=== PATIENT | male | born 1950 | race Two or more races ===

== ENCOUNTER 2020-12-23 08:03 | Emergency (ER) | payer OTHER ==
[~2020-12-23] VITALS: Ht 182.9 cm; Wt 74.8 kg
[2020-12-23 08:28] VITALS: BP 135/78
[2020-12-23] MEDS ORDERED: KETOROLAC TROMETHAMINE INJ 30 MG/ML VIAL IM ONE (08:30)
--- NOTE | 2020-12-23 08:31 | NUR ---
SEEN AND EXAMINED BY .
[2020-12-23] MEDS ORDERED: KETOROLAC TROMETHAMINE INJ 30 MG/ML VIAL ONE (08:42)
--- NOTE | 2020-12-23 08:44 | NUR ---
PT IS BACK FROM THE CT SCAN.
[2020-12-23] MEDS ORDERED: CALC3.7S NS (09:46)
[2020-12-23] MEDS ORDERED: HYDR-3980 PO (09:46)
--- NOTE | 2020-12-23 10:08 | NUR ---
Patient discharged to home in stable condition. Written and verbal after care instructions given. Patient verbalizes understanding of instruction.
[2020-12-24] MEDS ORDERED: HYDROMORPHONE INJ 2 MG/ML DISP.SYRIN ONE (01:25)
[2020-12-24] MEDS ORDERED: KETOROLAC TROMETHAMINE INJ 30 MG/ML VIAL ONE (01:26)
== END 2020-12-23 10:09 | disposition home or self-care (01) ==
LOC: ER 08:09
DX: S32.028A Other fracture of second lumbar vertebra, initial encounter for closed fracture (principal); J45.909 Unspecified asthma, uncomplicated; Z88.0 Allergy status to penicillin; Z79.899 Other long term (current) drug therapy; X58.XXXA Exposure to other specified factors, initial encounter; Y93.89 Activity, other specified; Y92.89 Other specified places as the place of occurrence of the external cause; Y99.8 Other external cause status
CPT/HCPCS: 72131; 96372; 99284; J1885; J1170

== ENCOUNTER 2020-12-23 22:07 | Emergency (ER) | payer OTHER ==
[~2020-12-23] VITALS: Ht 182.9 cm; Wt 74.8 kg
[~2020-12-23 22:07] MED LIST: CALC3.7S NS; HYDR-3980 PO
--- NOTE | 2020-12-23 22:35 | NUR ---
[facility] C/O LEFT LOWER BACK PAIN, WAS SEEN HERE EARLIER TODAY. PATIENT STATES LOWER BACK PAIN UNRELIEVED BY NORCO THAT WAS PRESCRIBED. PT ALERT AND ORIENTED X3. AMBULATORY WITH NON LABORED BREATHING.
[2020-12-23] MEDS ORDERED: HYDROMORPHONE 1 MG/1 ML DISP.SYRIN IM ONE (23:00)
[2020-12-23] MEDS ORDERED: KETOROLAC TROMETHAMINE INJ 30 MG/ML VIAL IM ONE (23:00)
[2020-12-23] MEDS ORDERED: HYDROMORPHONE 1 MG/1 ML DISP.SYRIN ONE (23:10)
[2020-12-23] MEDS ORDERED: KETOROLAC TROMETHAMINE INJ 30 MG/ML VIAL ONE (23:10)
[2020-12-24] MEDS ORDERED: KETOROLAC TROMETHAMINE INJ 30 MG/ML VIAL IM ONE (01:00)
[2020-12-24] MEDS ORDERED: HYDROMORPHONE INJ 2 MG/ML DISP.SYRIN IM ONE (01:00)
[2020-12-24 01:44] VITALS: BP 130/77
--- NOTE | 2020-12-24 01:44 | NUR ---
Patient discharged to home in stable condition. Written and verbal after care instructions given. Patient verbalizes understanding of instruction.
[2021-01-04] MEDS ORDERED: HYDR-3980 PO (10:03)
[2021-01-04] MEDS ORDERED: VANC1VIA34 IV (10:13)
[2021-01-04] MEDS ORDERED: CEFT2FRO2 IV (10:13)
[2021-01-05] MEDS ORDERED: DOCU-141 PO (09:28)
== END 2020-12-24 01:45 | disposition home or self-care (01) ==
LOC: ER 22:09
DX: S32.009A Unspecified fracture of unspecified lumbar vertebra, initial encounter for closed fracture (principal); J45.909 Unspecified asthma, uncomplicated; Z60.2 Problems related to living alone; Z88.0 Allergy status to penicillin; Z79.899 Other long term (current) drug therapy; X58.XXXA Exposure to other specified factors, initial encounter; Y93.89 Activity, other specified; Y92.89 Other specified places as the place of occurrence of the external cause; Y99.8 Other external cause status
CPT/HCPCS: 96372 ×4; 99284; J1170 ×2; J1885 ×2

== ENCOUNTER 2020-12-26 04:34 | Emergency (ER) | payer OTHER ==
[~2020-12-26] VITALS: Ht 182.9 cm; Wt 74.8 kg
[2020-12-26 04:34] VITALS: BP 141/81
[2020-12-26] MEDS ORDERED: MORPHINE SULFATE INJ 2 MG/ML DISP.SYRIN IM ONE (05:00)
[2020-12-26] MEDS ORDERED: ONDANSETRON 4 MG TAB.RAPDIS PO ONE (05:00)
--- NOTE | 2020-12-26 05:00 | NUR ---
Patient discharged to home in stable condition. Written and verbal after care instructions given. Patient verbalizes understanding of instruction. pt ambulatory with a steady gait
[2020-12-26] MEDS ORDERED: MORPHINE SULFATE INJ 4 MG/ML DISP.SYRIN ONE (05:01)
[2020-12-26] MEDS ORDERED: ONDANSETRON 4 MG TAB.RAPDIS ONE (05:02)
[2021-01-04] MEDS ORDERED: HYDR-3980 PO (10:03)
[2021-01-04] MEDS ORDERED: CEFT2FRO2 IV (10:13)
[2021-01-04] MEDS ORDERED: VANC1VIA34 IV (10:13)
[2021-01-05] MEDS ORDERED: DOCU-141 PO (09:28)
== END 2020-12-26 05:00 | disposition home or self-care (01) ==
LOC: ER 04:36
DX: S32.008A Other fracture of unspecified lumbar vertebra, initial encounter for closed fracture (principal); M54.50 Low back pain, unspecified; J45.909 Unspecified asthma, uncomplicated; Z88.0 Allergy status to penicillin; Z60.2 Problems related to living alone; Z79.899 Other long term (current) drug therapy; X58.XXXA Exposure to other specified factors, initial encounter; Y93.89 Activity, other specified; Y92.89 Other specified places as the place of occurrence of the external cause; Y99.8 Other external cause status
CPT/HCPCS: 96372; 99283; J2270; Q0162

== ENCOUNTER 2020-12-27 17:22 | Emergency (ER) | payer OTHER ==
[~2020-12-27] VITALS: Ht 182.9 cm; Wt 74.8 kg
[2020-12-27 22:50] VITALS: BP 139/66
[2020-12-27] MEDS ORDERED: MORPHINE SULFATE INJ 4 MG/ML DISP.SYRIN ONE (22:59)
[2020-12-27] MEDS ORDERED: MORPHINE SULFATE INJ 2 MG/ML DISP.SYRIN IM ONE (23:00)
[2021-01-04] MEDS ORDERED: HYDR-3980 PO (10:03)
[2021-01-04] MEDS ORDERED: CEFT2FRO2 IV (10:13)
[2021-01-04] MEDS ORDERED: VANC1VIA34 IV (10:13)
[2021-01-05] MEDS ORDERED: DOCU-141 PO (09:28)
== END 2020-12-27 23:39 | disposition home or self-care (01) ==
LOC: ER 17:33
DX: S32.008A Other fracture of unspecified lumbar vertebra, initial encounter for closed fracture (principal); J45.909 Unspecified asthma, uncomplicated; Z88.0 Allergy status to penicillin; Z60.2 Problems related to living alone; X58.XXXA Exposure to other specified factors, initial encounter; Y93.89 Activity, other specified; Y92.89 Other specified places as the place of occurrence of the external cause; Y99.8 Other external cause status
CPT/HCPCS: 96372; 99283; J2270

== ENCOUNTER 2020-12-31 14:04 | Inpatient (IN) | payer OTHER ==
[~2020-12-31] VITALS: Ht 182.9 cm; Wt 73.9 kg
--- NOTE | 2020-12-31 14:12 | NUR ---
BIB [facility] FROM [facility] C/O WORSENING LOWER BACK PAIN X 2 WEEKS. PAIN IS RATED 10/10, RADIATES TO L LEG. PAIN IS WORSE W MOVEMENT. DENIES TRAUMA. HX L2 FRACTURE, ASTHMA. AAOX4, PT SITTING ON BED, BREATHING EVEN AND UNLABORED.
[2020-12-31] MEDS ORDERED: MORPHINE SULFATE INJ 2 MG/ML DISP.SYRIN IV ONE ×2 (15:00→16:30)
[2020-12-31] MEDS ORDERED: IV NS 0.9% 500 ML BAG IV ONE ×2 (15:00→19:00)
[2020-12-31] MEDS ORDERED: ONDANSETRON HCL/PF 4 MG/2 ML VIAL IVP ONE (15:00)
[2020-12-31] MEDS ORDERED: ZINC50TA69 PO (15:17)
[2020-12-31] MEDS ORDERED: LORA10TA7 PO (15:17)
[2020-12-31] MEDS ORDERED: TIOT4MIS5 INH (15:17)
[2020-12-31] MEDS ORDERED: TRAM50TA2 PO (15:17)
[2020-12-31] MEDS ORDERED: CHOL100062 PO (15:17)
[2020-12-31] MEDS ORDERED: MAGN400T26 PO (15:17)
[2020-12-31] MEDS ORDERED: ALBU8.5H8 IH (15:17)
[2020-12-31] MEDS ORDERED: HYDR-3980 PO (15:17)
[2020-12-31] MEDS ORDERED: PANT40TA49 PO (15:17)
[2020-12-31] MEDS ORDERED: MULT-447 PO (15:17)
[2020-12-31] MEDS ORDERED: MORPHINE SULFATE INJ 4 MG/ML DISP.SYRIN ONE ×2 (15:23→17:30)
[2020-12-31] MEDS ORDERED: ONDANSETRON HCL/PF 4 MG/2 ML VIAL IVP PRN (15:30)
[2020-12-31] MEDS ORDERED: MAGNESIUM HYDROXIDE 30 ML UDC PO PRN (15:30)
[2020-12-31] MEDS ORDERED: ACETAMINOPHEN 325 MG TABLET PO PRN (15:30)
[2020-12-31] MEDS ORDERED: MAG HYDROX/AL HYDROX/SIMETH 30 ML UDC PO PRN (15:30)
[2020-12-31] MEDS ORDERED: HYDROCODONE/APAP 5/325MG TABLET PO PRN (15:30)
[2020-12-31] MEDS ORDERED: Z GUARD REMEDY 2 OZ OINT TP PRN (15:30)
--- NOTE | 2020-12-31 15:40 | NUR ---
BLOOD SAMPLE OBTAINED AND SENT TO LAB
[2020-12-31 15:57] LABS: BASOPHILS % (AUTO) 0.4 % (0.0-2.0); EOSINOPHILS % (AUTO) 1.7 % (0.0-6.0); HEMATOCRIT 46 % (39-51); HEMOGLOBIN 15.2 g/dL (13.5-17.5); LYMPHOCYTES # (AUTO) 0.8 K/uL (0.8-4.8); LYMPHOCYTES % (AUTO) 8.8 % (20.0-44.0); MEAN CORPUSCULAR HGB CONC 33 g/dl (31.0-36.0); MEAN CORPUSCULAR VOLUME 92 fL (80-96); MONOCYTES # (AUTO) 0.7 K/uL (0.1-1.30); MONOCYTES % (AUTO) 7.6 % (2.0-12.0); NEUTROPHILS # (AUTO) 7.9 K/uL (1.8-8.9); NEUTROPHILS % (AUTO) 81.5 % (43.0-81.0); PLATELET COUNT (AUTO) 322 K/uL (150-450); RED BLOOD CELL COUNT(AUTO) 5.02 MIL/uL (4.5-6.0); WHITE BLOOD COUNT (AUTO) 9.7 K/uL (4.3-11.0)
[2020-12-31 16:11] LABS: CALCIUM, SERUM 9.2 mg/dL (8.5-10.1); POTASSIUM 3.4 mmol/L (3.5-5.1)
--- NOTE | 2020-12-31 16:27 | NUR ---
wheeled patient via wheelchair to MRI
[2020-12-31] MEDS ORDERED: ONDANSETRON HCL/PF 4 MG/2 ML VIAL IV ONE (16:30)
--- NOTE | 2020-12-31 17:56 | NUR ---
PT RETURNED FROM MRI
[2020-12-31] MEDS ORDERED: GADOTERATE MEGLUMINE 10 MMOL/20 ML VIAL IV ONE (18:00)
[2020-12-31] MEDS ORDERED: VANCOMYCIN 1 GM in IV D5W 250 ML IV ONE (19:00)
[2020-12-31] MEDS ORDERED: HYDROMORPHONE 1 MG/1 ML DISP.SYRIN IV ONE ×2 (19:00→20:00)
[2020-12-31] MEDS ORDERED: CEFTRIAXONE 2 G in IV D5W 50 ML IV ONE (19:00)
--- NOTE | 2020-12-31 19:34 | NUR ---
MRSA SWAB COLLECTED AND SENT TO LAB. PATIENT'S BELONGINGS LIST DONE.
[2020-12-31] MEDS ORDERED: HYDROMORPHONE 1 MG/1 ML DISP.SYRIN ONE (19:56)
--- NOTE | 2020-12-31 21:15 | NUR ---
MS 311-2
--- NOTE | 2020-12-31 21:38 | NUR ---
REPORT GIVEN TO BRITTANI
--- NOTE | 2020-12-31 21:45 | NUR ---
PT TRANFERRING TO 3W 311-2 VIA ACLS PROTOCOL. ALL BELONGINGS WITH PT.
[2020-12-31 21:50] VITALS: BP 147/87
--- NOTE | 2020-12-31 22:00 | NUR ---
RN MS ADMITTING NOTES ADMITTED A 70 Y/O MALE TO UNIT AT 2145 VIA GURNEY BY El NURSE RN. PT IS A/O X 4. ABLE TO MAKE NEDS KNOWN, NO C/O PAIN AND DISCOMFORT AT THIS TIME. PT. ON ROOM AIR, TOLERATING WELL WITH NO SOB NOTED. IV ACCESS NOTED AT RAC G#20 INTACT AND PATENT. ABDOMEN SOF AND NOM DISTENDED. PT. ORIENTED TO STAFF AND TO HIS ROOM. SAFETY MEASURES INITIATED, BED PLACED IN LOWEST LOCKED POSITION WITH SR- UP X 2. WILL CONTINUE TO MONITOR PATIENT ACCDGLY.
[2021-01-01] MEDS ORDERED: ZOSYN IVPB 3.375 G in IV D5W 50ml IV SCH (00:19)
[2021-01-01] MEDS: MORPHINE SULFATE INJ 2 MG/ML DISP.SYRIN IV PRN ×5 (00:29→20:14)
[2021-01-01] MEDS ORDERED: VANCOMYCIN 1.25 GM in IV D5W 250 ML IV ONE ×2 (00:30→02:30)
--- NOTE | 2021-01-01 00:30 | NUR ---
RN NOTES PATIENT C/O LOWER BACK PAIN, PRN MORPHINE SO4 IV GIVEN. WILL CONTINUE TO MONITOR PT.
[2021-01-01] MEDS ORDERED: PIPERACILLIN /TAZOBACTAM 3.375 G VIAL IV ONE (00:49)
[2021-01-01] MEDS: ENOXAPARIN SODIUM 40 MG/0.4 ML DISP.SYRIN SQ SCH ×2 (01:27→20:09)
[2021-01-01] MEDS: LIDOCAINE 5% (PATCH) 1 EA PATCH TP SCH ×2 (01:27→20:08)
[2021-01-01] MEDS ORDERED: POTASSIUM CHLORIDE 20 MEQ TAB.PRT.SR PO ONE (01:30)
--- NOTE | 2021-01-01 01:35 | NUR ---
RN NOTES SPOKE WITH PHARMACIST RINA REGARDING PT MEDS FOR ZOSYN AND VANCOMYCIN. RINA STATED WILL ADJUST THE TIME SO WE CAN ADMINISTER THE MEDS.
[2021-01-01] MEDS: ZOSYN IVPB 3.375 G in IV D5W 50ml IV SCH ×2 (01:58→08:00)
--- NOTE | 2021-01-01 03:15 | NUR ---
RN NOTES VANCOMYCIN IV DOSE RECEIVED FROM BOILER/CHILLER TECHNICIAN VALERIA
[2021-01-01] MEDS ORDERED: VANCOMYCIN 500 MG VIAL ONE (03:23)
[2021-01-01] MEDS ORDERED: VANCOMYCIN 1 GM VIAL ONE (03:32)
--- NOTE | 2021-01-01 04:40 | NUR ---
RN NOTES PATIENT C/O LOWER BACK PAIN, PRN MORPHINE SO4 IV GIVEN. WILL CONTINUE TO MONITOR PT
--- NOTE | 2021-01-01 06:43 | NUR ---
RN MS CLOSING NOTES PT IS A/O X 4. ABLE TO MAKE NEDS KNOWN, NO C/O PAIN AND DISCOMFORT AT THIS TIME. PT. ON ROOM AIR, TOLERATING WELL WITH NO SOB NOTED. IV ACCESS NOTED AT RAC G#20 INTACT AND PATENT. ABDOMEN SOFT AND NOM DISTENDED. PT. ORIENTED TO STAFF AND TO HIS ROOM. SAFETY MEASURES INITIATED, BED PLACED IN LOWEST LOCKED POSITION WITH SR- UP X 2. WILL ENDORSED PT. TO DAY TIME NURSE FOR SALUD
[2021-01-01 06:44] LABS: BASOPHILS % (AUTO) 0.2 % (0.0-2.0); HEMATOCRIT 40 % (39-51); HEMOGLOBIN 13.3 g/dL (13.5-17.5); LYMPHOCYTES % (AUTO) 14.6 % (20.0-44.0); MEAN CORPUSCULAR HGB CONC 33 g/dl (31.0-36.0); MEAN CORPUSCULAR VOLUME 93 fL (80-96); MONOCYTES # (AUTO) 0.8 K/uL (0.1-1.30); MONOCYTES % (AUTO) 12.3 % (2.0-12.0); NEUTROPHILS # (AUTO) 4.6 K/uL (1.8-8.9); NEUTROPHILS % (AUTO) 68.9 % (43.0-81.0); PLATELET COUNT (AUTO) 270 K/uL (150-450); RED BLOOD CELL COUNT(AUTO) 4.33 MIL/uL (4.5-6.0); WHITE BLOOD COUNT (AUTO) 6.7 K/uL (4.3-11.0)
[2021-01-01 07:12] LABS: CALCIUM, SERUM 8.5 mg/dL (8.5-10.1); CREATININE 1.1 mg/dL (0.6-1.3); MAGNESIUM 2.1 mg/dL (1.8-2.4)
--- NOTE | 2021-01-01 07:15 | NUR ---
MS RN NOTE RECEIVED PATIENT ALERT/ ORIENTED X 4. PATIENT IS ON ROOM AIR WITH EQUAL AND UNLABORED BREATHING WITH NO SIGNS OF RESPIRATORY DISTRESS. PATIENT DOS NOT COMPLAIN OF PAIN OR DISCOMFORT FOR NOW. BUT SAID IT IS USUALLY TRIGGERED WHEN HE HAS TO SIT DOWN, WALK OR SOMETIMES CHANGE POSITION. PATIENT WITH IV ACCESS ON RIGHT AC G 20 ON SALINE LOCK, PATENT AND INTACT. SAFETY MEASURES ENSURED WITH BED LOCKED AND AT LOWEST POSITION, WITH SIDERAILS UP. CALL LIGHT AND TABLE WITHIN REACH AT ALL TIMES. WILL CONTINUE TO MONITOR PATIENT.
[2021-01-01 07:24] LABS: THYROID STIMULATING HORMONE 1.813 uIU/mL (0.358-3.74)
[2021-01-01 08:00] VITALS: BP 142/89
[2021-01-01] MEDS: PANTOPRAZOLE 40 MG TABLET.DR PO SCH (08:44)
[2021-01-01] MEDS ORDERED: LORATADINE 10 MG TABLET PO PRN (09:30)
[2021-01-01] MEDS: TRAMADOL HCL 50 MG TABLET PO PRN (09:50)
[2021-01-01] MEDS ORDERED: ALBUTEROL FS 2.5 MG/3 ML VIAL.NEB NEB PRN (10:00)
[2021-01-01] MEDS: HYDROCODONE/APAP 10/325MG TABLET PO PRN ×3 (10:46→23:33)
[2021-01-01] MEDS: VANCOMYCIN 1 GM in IV D5W 250 ML IV SCH (15:44)
[2021-01-01 16:00] VITALS: BP 146/90
[2021-01-01] MEDS: PIPERACILLIN /TAZOBACTAM 3.375 G in IV D5W 100 ML IV SCH ×2 (17:02→23:29)
--- NOTE | 2021-01-01 19:10 | NUR ---
MS RN CLOSING NOTE PATIENT ALERT/ ORIENTED X 4. PATIENT IS ON ROOM AIR WITH EQUAL AND UNLABORED BREATHING WITH NO SIGNS OF RESPIRATORY DISTRESS. PATIENT DOS NOT COMPLAIN OF PAIN OR DISCOMFORT FOR NOW. BUT SAID IT IS USUALLY TRIGGERED WHEN HE HAS TO SIT DOWN, WALK OR SOMETIMES CHANGE POSITION. PATIENT WITH IV ACCESS ON RIGHT AC G 20 ON SALINE LOCK, PATENT AND INTACT. SAFETY MEASURES ENSURED WITH BED LOCKED AND AT LOWEST POSITION, WITH SIDERAILS UP. CALL LIGHT AND TABLE WITHIN REACH AT ALL TIMES. WILL ENDORSE PATIETN FOR CONTINUITY OF CARE.
--- NOTE | 2021-01-01 19:37 | NUR ---
RN OPENING NOTES Patient is A&Ox4 in bed. In no apparent distress. Denies pain or any other needs at this time. Safety measures in place. Will continue nto monitor pt.
[2021-01-01] MEDS: IPRATROPIUM NEB FS 0.5 MG/2.5 ML AMPUL.NEB NEB SCH (19:54)
[2021-01-01 20:00] VITALS: BP 147/91
[2021-01-02] MEDS: MORPHINE SULFATE INJ 2 MG/ML DISP.SYRIN IV PRN ×2 (00:39→04:39)
[2021-01-02] MEDS: ZOLPIDEM TARTRATE 5 MG TABLET PO PRN ×2 (00:45→23:57)
[2021-01-02] MEDS: VANCOMYCIN 1 GM in IV D5W 250 ML IV SCH ×2 (04:04→15:39)
--- NOTE | 2021-01-02 06:17 | NUR ---
RN CLOSING NOTES Patient is currently sleeping but easy to wake, breathing is even and unlabored. Tolerating IV ABX well, no ase. Patient did complain of sudden onset severe lower back pain radiating down to L leg, sometimes only lasting for 15-30 minutes (short durations) but pain is responsive to PRN pain medications. Patient needs help with repositioning out of bed d/t twisting of spine can onset an episode of immediate sharp severe pain. No cardiac or resp. distress. No change in mental status -A&Ox4.
[2021-01-02] MEDS: HYDROCODONE/APAP 10/325MG TABLET PO PRN ×3 (06:42→22:18)
[2021-01-02] MEDS: PANTOPRAZOLE 40 MG TABLET.DR PO SCH (06:42)
[2021-01-02 07:29] LABS: BASOPHILS % (AUTO) 0.5 % (0.0-2.0); EOSINOPHILS % (AUTO) 3.3 % (0.0-6.0); HEMATOCRIT 41 % (39-51); HEMOGLOBIN 13.6 g/dL (13.5-17.5); LYMPHOCYTES # (AUTO) 1.2 K/uL (0.8-4.8); LYMPHOCYTES % (AUTO) 18.8 % (20.0-44.0); MEAN CORPUSCULAR HGB CONC 33 g/dl (31.0-36.0); MEAN CORPUSCULAR VOLUME 92 fL (80-96); MONOCYTES # (AUTO) 0.8 K/uL (0.1-1.30); MONOCYTES % (AUTO) 11.6 % (2.0-12.0); NEUTROPHILS # (AUTO) 4.3 K/uL (1.8-8.9); NEUTROPHILS % (AUTO) 65.8 % (43.0-81.0); PLATELET COUNT (AUTO) 282 K/uL (150-450); RED BLOOD CELL COUNT(AUTO) 4.43 MIL/uL (4.5-6.0); WHITE BLOOD COUNT (AUTO) 6.5 K/uL (4.3-11.0)
[2021-01-02] MEDS ORDERED: PANTOPRAZOLE 40 MG TABLET.DR PO SCH (07:30)
--- NOTE | 2021-01-02 07:30 | NUR ---
MS RN OPENING NOTE RECEIVED PATIENT AWAKE IN BED. A/O X 4. PT IS STABLE ON ROOM AIR. NO SOB OR S/S OF RESPIRATORY DISTRESS. IV ACCESS ON RIGHT AC G 20 ON SALINE LOCK, PATENT AND INTACT. SAFETY MEASURES MAINTAINED. BED LOCKED AND AT LOWEST POSITION, SIDE RAILS UP X2, CALL LIGHT AND TABLE WITHIN REACH AT ALL TIMES. WILL CONTINUE WITH PLAN OF CARE.
[2021-01-02 08:00] VITALS: BP 146/97
[2021-01-02 08:03] LABS: CALCIUM, SERUM 8.7 mg/dL (8.5-10.1); CREATININE 1.1 mg/dL (0.6-1.3); POTASSIUM 3.8 mmol/L (3.5-5.1)
[2021-01-02] MEDS ORDERED: Medication Not On Formulary EA (Tiotropium Bromide (Spiriva Respimat) 2 PUFF) INH SCH (09:00)
[2021-01-02] MEDS: PIPERACILLIN /TAZOBACTAM 3.375 G in IV D5W 100 ML IV SCH ×2 (09:05→16:50)
[2021-01-02] MEDS: ZINC SULFATE 220 MG CAPSULE PO SCH (09:05)
[2021-01-02] MEDS: MULTIVIT W/MINERALS 1 TAB TABLET PO SCH (09:05)
[2021-01-02] MEDS: CHOLECALCIFEROL 1,000 UNIT TABLET (VIT D3) PO SCH (09:05)
[2021-01-02] MEDS: MAGNESIUM OXIDE 400 MG TABLET PO SCH (09:06)
[2021-01-02] MEDS: DOCUSATE SODIUM 250 MG CAPSULE PO SCH (09:30)
[2021-01-02] MEDS ORDERED: MAGNESIUM HYDROXIDE 30 ML UDC PO PRN (09:30)
[2021-01-02] MEDS ORDERED: LACTULOSE 10 G/15 ML UDC (PYXIS) PO PRN (09:30)
[2021-01-02] MEDS: HYDROMORPHONE 1 MG/1 ML DISP.SYRIN IV PRN ×3 (09:38→21:15)
[2021-01-02 16:00] VITALS: BP 158/104
[2021-01-02] MEDS: TRAMADOL HCL 50 MG TABLET PO PRN ×2 (16:47→23:57)
--- NOTE | 2021-01-02 18:25 | NUR ---
MS RN OPENING NOTE PATIENT AWAKE IN BED. A/O X 4. PT IS STABLE ON ROOM AIR. NO SOB OR S/S OF RESPIRATORY DISTRESS. IV ACCESS ON RIGHT AC G 20 ON SALINE LOCK, PATENT AND INTACT. ALL NEEDS MET AT THIS TIME. SAFETY MEASURES MAINTAINED AT ALL TIMES. BED LOCKED AND AT LOWEST POSITION, SIDE RAILS UP X2, CALL LIGHT AND TABLE WITHIN REACH AT ALL TIMES. WILL ENDORSE TO ONCOMING NURSE FOR SALUD.
[2021-01-02] MEDS: IPRATROPIUM NEB FS 0.5 MG/2.5 ML AMPUL.NEB NEB SCH (19:30)
--- NOTE | 2021-01-02 19:40 | NUR ---
Patient is A&Ox4. Resting in bed. denies pain at this time. No ase from IV ABX at this time. Tolerating treatment well. Pain was severe but able to be managed this morning with PRN pain meds pt. stated. Will continue to monitor.
[2021-01-02 20:00] VITALS: BP 140/93
--- NOTE | 2021-01-02 20:09 | NUR ---
RT NOTE PT REFUSED TX AT THIS TIME. NO RESPIRATORY DISTRESS NOTED. PT ON ROOM AIR. AMBROSIO JULIAN NOTIFIED.
[2021-01-02] MEDS: LIDOCAINE 5% (PATCH) 1 EA PATCH TP SCH (20:21)
[2021-01-02] MEDS: ENOXAPARIN SODIUM 40 MG/0.4 ML DISP.SYRIN SQ SCH (20:23)
[2021-01-02] MEDS: CEFTRIAXONE 2 G in IV D5W 100 ML IV SCH (21:15)
[2021-01-03] MEDS: HYDROMORPHONE 1 MG/1 ML DISP.SYRIN IV PRN ×5 (01:15→22:26)
[2021-01-03] MEDS: IPRATROPIUM NEB FS 0.5 MG/2.5 ML AMPUL.NEB NEB SCH ×4 (01:30→19:30)
[2021-01-03] MEDS: VANCOMYCIN 1 GM in IV D5W 250 ML IV SCH ×2 (04:24→15:26)
--- NOTE | 2021-01-03 06:44 | NUR ---
CLOSING NOTES Patient now awake A&Ox4, patient finally able to sleep once pain was well managed with PRN pain medications. However, patient did have some episodes of severe pain prior. No ase from ABX.
--- NOTE | 2021-01-03 07:19 | NUR ---
MS RN OPENING NOTE RECEIVED PATIENT AWAKE IN BED. A/O X 4. PT IS BREATHING EVENLY AND NONLABORED STABLE ON ROOM AIR. NO SOB OR S/S OF RESPIRATORY DISTRESS. IV ACCESS ON RIGHT AC G 20 ON SALINE LOCK, PATENT AND INTACT. SAFETY MEASURES MAINTAINED. BED LOCKED AND AT LOWEST POSITION, SIDE RAILS UP X2, CALL LIGHT AND TABLE WITHIN REACH AT ALL TIMES. WILL CONTINUE TO MONITOR
[2021-01-03 08:00] VITALS: BP 138/87
[2021-01-03] MEDS: CHOLECALCIFEROL 1,000 UNIT TABLET (VIT D3) PO SCH (08:17)
[2021-01-03] MEDS: ZINC SULFATE 220 MG CAPSULE PO SCH (08:17)
[2021-01-03] MEDS: PANTOPRAZOLE 40 MG TABLET.DR PO SCH (08:17)
[2021-01-03] MEDS: HYDROCODONE/APAP 10/325MG TABLET PO PRN ×3 (08:17→17:47)
[2021-01-03] MEDS: MAGNESIUM OXIDE 400 MG TABLET PO SCH (08:17)
[2021-01-03] MEDS: DOCUSATE SODIUM 250 MG CAPSULE PO SCH (08:17)
[2021-01-03] MEDS: MULTIVIT W/MINERALS 1 TAB TABLET PO SCH (08:17)
[2021-01-03] MEDS: ENSURE ENLIVE 237 ML LIQUID (VANILLA) PO SCH ×3 (10:00→16:01)
--- NOTE | 2021-01-03 15:30 | NUR ---
RN NOTE PATIENT NOTED TO HAVE DISLODGED IV ACCESS, REINSERTED NEW IV ON R FOREARM # 22 GAUGE, PATENT INTACT.
[2021-01-03 16:00] VITALS: BP 144/96
--- NOTE | 2021-01-03 18:35 | NUR ---
MS RN CLOSING NOTE PATIENT AWAKE IN BED. A/O X 4. PT IS BREATHING EVENLY AND NONLABORED STABLE ON ROOM AIR. NO SOB OR S/S OF RESPIRATORY DISTRESS. IV ACCESS ON RIGHT FOREARM 22# ON SALINE LOCK, PATENT AND INTACT. DENIES PAIN OR DISCOMFIRT AT THIS TIME. ALL MEDICATIONS GIVEN ORDERED. SAFETY MEASURES MAINTAINED. BED LOCKED AND AT LOWEST POSITION, SIDE RAILS UP X2, CALL LIGHT AND TABLE WITHIN REACH AT ALL TIMES. WILL ENDORSE TO ONCOMING SHIFT
[2021-01-03 20:00] VITALS: BP 116/85
[2021-01-03] MEDS: LIDOCAINE 5% (PATCH) 1 EA PATCH TP SCH (20:27)
--- NOTE | 2021-01-03 20:45 | NUR ---
MS RN OPENING NOTES: RECEIVED PATIENT AWAKE IN BED, HOB AT 45 DEGREE, NO COMPLAIN OF PAIN AND DISCOMFORT AT THIS TIME. PATIENT IS A/O X4 ABLE TO EXPRESS NEEDS, IV LINE AT RFA#22 SL PATIENT IS ON PAIN MANAGEMENT, NO FACIAL GRIMACING OR ANY COMPLAIN OF DISCOMFORT ON RA NO SOB WAS OBSERVED, PATIENT KEPT CLEAN AND DRY, ALL NEEDS MET, WILL CONTINUE TO MONITOR.
[2021-01-03] MEDS: ENOXAPARIN SODIUM 40 MG/0.4 ML DISP.SYRIN SQ SCH (20:55)
[2021-01-03] MEDS: CEFTRIAXONE 2 G in IV D5W 100 ML IV SCH (20:56)
[2021-01-03] MEDS: ZOLPIDEM TARTRATE 5 MG TABLET PO PRN (23:25)
[2021-01-04] MEDS: IPRATROPIUM NEB FS 0.5 MG/2.5 ML AMPUL.NEB NEB SCH ×4 (01:30→19:30)
[2021-01-04] MEDS: HYDROCODONE/APAP 10/325MG TABLET PO PRN ×4 (02:38→22:56)
[2021-01-04] MEDS: VANCOMYCIN 1 GM in IV D5W 250 ML IV SCH ×2 (04:12→15:59)
[2021-01-04] MEDS: HYDROMORPHONE 1 MG/1 ML DISP.SYRIN IV PRN ×3 (06:16→18:48)
--- NOTE | 2021-01-04 06:59 | NUR ---
MS RN CLOSING NOTE PATIENT SLEEP IN BED COMFORTABLY, BED IN LOW POSITION, CALL LIGHTS WITHIN REACH, NO COMPLAIN OF PAIN AND DISCOMFORT AT THIS TIME, PATIENT IS A/OX4 AMBULATORY, ON PAIN MANAGEMENT, IV LINE AT RFA#22SL, PATIENT KEPT CLEAN AND DRY, ALL NEEDS MET, ENDORSE TO INCOMING SHIFT.
--- NOTE | 2021-01-04 07:30 | NUR ---
RN MS NOTES PT IN BED, ASLEEP, EASY TO AROUSE, ALERT AND ORIENTED, NO COMPLAINT AT THIS TIME, BREATHING PATTERN NORMAL, CALL LIGHT WITHIN REACH.
[2021-01-04 07:42] LABS: CALCIUM, SERUM 8.3 mg/dL (8.5-10.1); CREATININE 1.3 mg/dL (0.6-1.3); POTASSIUM 3.5 mmol/L (3.5-5.1)
--- NOTE | 2021-01-04 07:52 | NUR ---
RT NOTE PATIENT AWAKE/ALERT AND REFUSED TX. STATES NOT NEEDING THE TX AT THIS TIME. RN NOTIFIED. NO SOB NOTED.
[2021-01-04 09:00] VITALS: BP 139/85
[2021-01-04] MEDS: ZINC SULFATE 220 MG CAPSULE PO SCH (09:10)
[2021-01-04] MEDS: MULTIVIT W/MINERALS 1 TAB TABLET PO SCH (09:10)
[2021-01-04] MEDS: CHOLECALCIFEROL 1,000 UNIT TABLET (VIT D3) PO SCH (09:10)
[2021-01-04] MEDS: DOCUSATE SODIUM 250 MG CAPSULE PO SCH (09:10)
[2021-01-04] MEDS: MAGNESIUM OXIDE 400 MG TABLET PO SCH (09:10)
[2021-01-04] MEDS: PANTOPRAZOLE 40 MG TABLET.DR PO SCH (09:11)
[2021-01-04] MEDS: ENSURE ENLIVE 237 ML LIQUID (VANILLA) PO SCH ×3 (09:25→18:19)
[2021-01-04] MEDS ORDERED: HYDR-3980 PO (10:03)
[2021-01-04] MEDS ORDERED: CEFT2FRO2 IV (10:13)
[2021-01-04] MEDS ORDERED: VANC1VIA34 IV (10:13)
[2021-01-04 16:00] VITALS: BP 134/83
--- NOTE | 2021-01-04 18:14 | NUR ---
RN MS NOTES PT IN BED, AWAKE, ALERT AND ORIENTED, AMBULATES TO THE BATHROOM WITH STEADY GAIT, PICC LINE INSERTION DONE, TOLERATED WELL, DISCHARGE MEDICATIONS AND INSTRUCTIONS PROVIDED TO PT, VERBALIZED UNDERSTANDING, AWAITING CONFIRMATION FROM PT'S INSURANCE REGARDING HOME HEALTH ARRANGEMENTS, INFORMATION NEEDED FAXED TO HIS GLUE JOINTER FEEDER CHANDLER, AWAITING RESPONSE, CALL LIGHT KEPT WITHIN REACH, ALL NEEDS ATTENDED, WILL ENDORSE TO INCOMING SHIFT FOR CONTINUITY OF CARE AND FOLLOW UP.
--- NOTE | 2021-01-04 19:36 | NUR ---
MS RN OPENING NOTES: RECEIVED PATIENT AWAKE IN BED, BED IN LOW POSITION, DAVIDE LIGHTS WITHIN REACH, NO COMPLAIN OF PAIN AND DISCOMFORT AT THIS TIME, PATIENT IS A/OX4 AMBULATORY WITH SUPERVISION, IV LINE AT RFA#22 AND KARLENE PICC LINE INFUSING WELL. ON RA NO SOB NOTED. PATIENT AWAITING FOR D/C ALL NEEDS MET, KEPT CLEAN AND DRY, WILL CONTINUE TO MONITOR.
[2021-01-04 20:00] VITALS: BP 126/90
--- NOTE | 2021-01-04 20:15 | NUR ---
RT NOTE PT IS AWAKE AND ALERT. PATIENT IS REFUSING TX AT THIS TIME. NO SIGNS OF RESPIRATORY DISTRESS NOTED. PRIMARY RN NOTIFIED.
[2021-01-04] MEDS: LIDOCAINE 5% (PATCH) 1 EA PATCH TP SCH (20:23)
[2021-01-04] MEDS: CEFTRIAXONE 2 G in IV D5W 100 ML IV SCH (21:33)
[2021-01-04] MEDS: ENOXAPARIN SODIUM 40 MG/0.4 ML DISP.SYRIN SQ SCH (21:44)
[2021-01-04] MEDS: ZOLPIDEM TARTRATE 5 MG TABLET PO PRN (23:04)
[2021-01-05] MEDS: IPRATROPIUM NEB FS 0.5 MG/2.5 ML AMPUL.NEB NEB SCH ×4 (01:30→19:30)
--- NOTE | 2021-01-05 01:50 | NUR ---
RN NOTES: PATIENT REFUSING ROUTINE BREATHING TREATMENT EXPLAIN RISK AND BENEFITS BUT KEPT ON REFUSING, HE STATE " I DON'T NEED IT PER RT"
[2021-01-05] MEDS: VANCOMYCIN 1 GM in IV D5W 250 ML IV SCH ×2 (04:11→15:49)
[2021-01-05] MEDS: HYDROMORPHONE 1 MG/1 ML DISP.SYRIN IV PRN ×2 (04:20→15:23)
[2021-01-05 04:57] VITALS: BP 126/90
[2021-01-05 07:13] LABS: CALCIUM, SERUM 8.8 mg/dL (8.5-10.1)
--- NOTE | 2021-01-05 07:30 | NUR ---
MS RN OPENING NOTES: RECEIVED PATIENT AWAKE IN BED ALERT AND ORIENTED TIMES 4., BED IN LOW POSITION AND LOCKED, CALL LIGHT AND TABLE WITHIN REACH, NO COMPLAIN OF PAIN AND DISCOMFORT AT THIS TIME. AMBULATORY WITH SUPERVISION, IV LINE AT RFA#22 AND KARLENE PICC LINE INFUSING WELL. ON RA NO SOB NOTED. WILL CONTINUE TO MONITOR.
--- NOTE | 2021-01-05 07:33 | NUR ---
RN CLOSING NOTE PATIENT SLEEP IN BED COMFORTABLY, BED IN LOW POSITION, CALL LIGHTS WITHIN REACH, NO COMPLAIN OF PAIN AND DISCOMFORT AT THIS TIME, PATIENT IS A/OX4 AMBULATORY, ABLE TO EXPRESS NEEDS, WITH IV LINE AT RFA#22 AND KARLENE PICC LINE ON PAIN MANAGEMENT, PATIENT IS DUE FOR D/ C AWAITING FOR CONFIRMATION FROM PROSTHETIC DENTIST, PATIENT KEPT CLEAN AND DRY, ALL NEEDS MET, ENDORSE TO INCOMING SHIFT.
[2021-01-05] MEDS: HYDROCODONE/APAP 10/325MG TABLET PO PRN ×2 (07:50→20:04)
[2021-01-05] MEDS: PANTOPRAZOLE 40 MG TABLET.DR PO SCH (07:50)
[2021-01-05 08:00] VITALS: BP 131/86
[2021-01-05] MEDS: ENSURE ENLIVE 237 ML LIQUID (VANILLA) PO SCH ×3 (08:29→17:18)
[2021-01-05] MEDS: MAGNESIUM OXIDE 400 MG TABLET PO SCH (09:10)
[2021-01-05] MEDS: DOCUSATE SODIUM 250 MG CAPSULE PO SCH (09:10)
[2021-01-05] MEDS: CHOLECALCIFEROL 1,000 UNIT TABLET (VIT D3) PO SCH (09:10)
[2021-01-05] MEDS: MULTIVIT W/MINERALS 1 TAB TABLET PO SCH (09:10)
[2021-01-05] MEDS: ZINC SULFATE 220 MG CAPSULE PO SCH (09:15)
[2021-01-05] MEDS ORDERED: ZOLP5TAB8 PO (09:28)
[2021-01-05] MEDS ORDERED: DOCU-141 PO (09:28)
[2021-01-05] MEDS ORDERED: MAGNESIUM CITRATE 296 ML BOTTLE PO ONE (11:00)
[2021-01-05 16:00] VITALS: BP 132/83
[2021-01-05] MEDS: CEFTRIAXONE 2 G in IV D5W 100 ML IV SCH (17:18)
--- NOTE | 2021-01-05 18:33 | NUR ---
RN CLOSING NOTE PATIENT AWAKE IN BED ALERT AND ORIENTED TIMES 4, BED IN LOW POSITION, CALL LIGHTS WITHIN REACH, NO COMPLAIN OF PAIN AND DISCOMFORT AT THIS TIME, DUE MEDS GIVEN ORDERED. TOLERATED WELL. AMBULATORY, ABLE TO EXPRESS NEEDS, WITH IV LINE AT RFA#22 AND KARLENE PICC LINE .PATIENT KEPT CLEAN AND DRY, ALL NEEDS MET, PATIENT AWAITING FOR TRANSPORTATION . AUTHORIZATION # [id number] FOR [facility]. [facility] WILL BE DOING THE CARE AT HOME.WILL ENDORSE TO INCOMING SHIFT NURSE FOR SALUD.
--- NOTE | 2021-01-05 19:15 | NUR ---
RN NOTE RECEIVED PT UP IN BED, WATCHING TV AT THIS TIME. PT FOR DISCHARGE HOME AND AWAITING TRANSPORTATION. PT STATES HE WILL DRESS HIMSELF UP BEFORE 1999. PT UNDERSTANDS DISCHARGE TEACHINGS/INSTRUCTIONS WELL. IV ACCESS ON R-FA REMOVED AND HAYDEE.WELL. NO ACUTE DISTRESS NOTED. WILL CONT. TO MONITOR.
[2021-01-05] MEDS: LIDOCAINE 5% (PATCH) 1 EA PATCH TP SCH (20:03)
[2021-01-05] MEDS: ENOXAPARIN SODIUM 40 MG/0.4 ML DISP.SYRIN SQ SCH (20:04)
--- NOTE | 2021-01-05 20:04 | NUR ---
RN NOTE PT C/O BACK PAIN 11/18 SUSANNA WHEN HE MOVES AND REQUESTS NORCO. GIVEN NORCO 1 TAB ORDERED.
--- NOTE | 2021-01-05 20:10 | NUR ---
RT PT REFUSED TX, WAITING TO BE DISCHARGED.
--- NOTE | 2021-01-05 20:35 | NUR ---
ELIGIBILITY WORKER NOTE PT PICKED UP BY [facility] UN[facility], VIA GURNEY WITH 2 PERSONNEL. REPORT GIVEN. PT A/OX4, DENIES ANY PAIN/DISCOMFORT AT THIS TIME. VERBALIZES UNDERSTANDING OF DISCHARGE TEACHINGS/INSTRUCTIONS, AND HOME HEALTH FOLLOWING AT HOME. PERTINENT PAPERWORKS SENT WITH PT. ALL BELONGINGS SENT. PT DISCHARGED IN STABLE CONDITION.
== END 2021-01-05 20:30 | disposition home health service (06) | DRG 540 ==
LOC: ER 14:08 → MED 21:19
PROVIDERS: ATTEND Internal Medicine
PROC: 02HV33Z Insertion of Infusion Device into Superior Vena Cava, Percutaneous Approach (ICD-10-PCS; principal; 2021-01-04)
PROC: B548ZZA Ultrasonography of Superior Vena Cava, Guidance (ICD-10-PCS; 2021-01-04)
DX: M46.26 Osteomyelitis of vertebra, lumbar region (principal); M48.56XA Collapsed vertebra, not elsewhere classified, lumbar region, initial encounter for fracture; E87.6 Hypokalemia; J45.909 Unspecified asthma, uncomplicated; Z20.822 Contact with and (suspected) exposure to COVID-19; Z88.0 Allergy status to penicillin; Z79.51 Long term (current) use of inhaled steroids; Z79.899 Other long term (current) drug therapy; K80.20 Calculus of gallbladder without cholecystitis without obstruction; M43.16 Spondylolisthesis, lumbar region; M48.061 Spinal stenosis, lumbar region without neurogenic claudication
CPT/HCPCS: 36415; 71045-TC; 72158-TC; 80048-TC; 80202-TC; 83605-TC; 83735-TC; 84100-TC; 84443-TC; 85025-TC; 87040-TC; 87081-TC; 97116-TC; 97530-TC; A9575; C9803; G0378; J0696; J1170; J1650; J2270; J2405; J2543; J3370; J7030; J7040; J7050; J7060

== ENCOUNTER 2021-03-01 16:30 | Emergency (ER) | payer OTHER ==
[~2021-03-01] VITALS: Ht 182.9 cm; Wt 72.6 kg
[~2021-03-01 16:30] MED LIST changes: +ALBU8.5H8 IH; -CALC3.7S NS; +CEFT2FRO2 IV; +CHOL100062 PO; +DOCU-141 PO; +LORA10TA7 PO; +MAGN400T26 PO; +MULT-447 PO; +PANT40TA49 PO; +TIOT4MIS5 INH; +TRAM50TA2 PO; +VANC1VIA34 IV; +ZINC50TA69 PO
[2021-03-01 16:43] VITALS: BP 124/99
--- NOTE | 2021-03-01 16:43 | NUR ---
[facility] REQUESTING PICC LINE REMOVAL S/P IV VANCO COURSE. VITALS ARE WITHIN NORMAL LIMITS. BREATHING IS EVEN AND UNLABORED.
--- NOTE | 2021-03-01 16:54 | NUR ---
DR ACOSTA AT BEDSIDE
--- NOTE | 2021-03-01 17:22 | NUR ---
PICC LINE REMOVED. TOLERATED PROCEDURE WELL. NO BLEEDING NOTED. PT DISCHARGE IN STABLE CONDITION.
== END 2021-03-01 17:23 | disposition home or self-care (01) ==
LOC: ER 16:31
DX: Z45.2 Encounter for adjustment and management of vascular access device (principal); J45.909 Unspecified asthma, uncomplicated; M86.9 Osteomyelitis, unspecified; Z88.0 Allergy status to penicillin; Z60.2 Problems related to living alone; Z79.899 Other long term (current) drug therapy